=== PATIENT | female | born 1980 | race Caucasian/White ===

== ENCOUNTER 2017-09-26 18:28 | Emergency (ER) | payer BC, OTHER ==
[2017-09-26] MEDS ORDERED: Acetaminophen TAB* 325 MG PO ONE (19:25)
[2017-09-26] MEDS ORDERED: Oseltamivir CAP* 75 MG PO ONE (19:25)
--- NOTE | 2017-09-26 19:44 | ED ---
Jeremy Alcantar Tiffany, scribed for Eliud Prince on 09/26/17 at 1927 . Influenza-Like Illness - HPI Summary HPI Summary: This patient is a 37 year old F presenting to [facility] accompanied by with a chief complaint of general body aches since this morning. The patient rates the pain 6/10 in severity. Symptoms aggravated by nothing. Symptoms alleviated by nothing. Patient reports fever, chest pain, shortness of breath, and headache. - History of Current Complaint Chief Complaint: EDGeneral Time Seen by Provider: 09/26/17 19:14 Hx Obtained From: Patient Onset/Duration: Lasting Hours - This morning, Still Present Severity: Moderate - 6/10 - Allergy/Home Medications Allergies/Adverse Reactions: Allergies Allergy/AdvReac Type Severity Reaction Status Date / Time Sulfa Antibiotics Allergy Rash Verified 09/26/17 18:39 PMH/Surg Hx/FS Hx/Imm Hx Previously Healthy: Yes Cardiovascular History: Denies: Hx Pacemaker/ICD History: Denies: Hx Renal Disease Opthamlomology History: Denies: Hx Legally Blind EENT History: Denies: Hx Deafness Infectious Disease History: No Infectious Disease History: Denies: Traveled Outside the [place] in Last 30 Days - Family History Known Family History: Positive: Other - Pt denies relevant family history - Social History Alcohol Use: None Hx Substance Use: No Substance Use Type: Reports: None Hx Tobacco Use: No Review of Systems Positive: Fever Positive: Chest Pain Positive: Shortness Of Breath Positive: Other - General body aches Positive: Headache All Other Systems Reviewed And Are Negative: Yes Physical Exam - Summary Physical Exam Summary: Appearance: Well appearing, no pain distress Skin: warm, dry, reflects adequate perfusion Head/face: normal Eyes: EOMI, LARY ENT: normal Neck: supple, non-tender Respiratory: CTA, breath sounds present Cardiovascular: RRR, pulses symmetrical Abdomen: non-tender, soft Bowel: present Musculoskeletal: normal, strength/ROM intact Neuro: normal, sensory motor intact, A&Ox3 Triage Information Reviewed: Yes Vital Signs On Initial Exam: Initial Vitals Temp Pulse Resp BP Pulse Ox 96.9 F 100 20 121/75 97 09/26/17 18:36 09/26/17 18:36 09/26/17 18:36 09/26/17 18:36 09/26/17 18:36 Vital Signs Reviewed: Yes Diagnostics - Vital Signs Vital Signs Temp Pulse Resp BP Pulse Ox 09/26/17 18:36 96.9 F 100 20 121/75 97 - Laboratory Lab Results: Lab Results 09/26/17 Range/Units 18:54 Influenza A (Rapid) Positive H (Negative) Influenza B (Rapid) Negative (Negative) Lab Statement: Any lab studies that have been ordered have been reviewed, and results considered in the medical decision making process. Flu Symptom Course/Dx - Course Course Of Treatment: This patient is a 37 year old F presenting to [facility] with a chief complaint of general body aches since this morning. Influenza test came back positive. In ED course, the patient was given Tylenol and Tamiflu. Patient will be discharged with prescription for Tamiflu and follow up from PCP. The patient is agreeable with this plan. - Diagnoses Provider Diagnoses: Influenza Discharge - Discharge Plan Condition: Stable Disposition: HOME Prescriptions: Oseltamivir CAP* [Tamiflu CAP*] 75 mg PO BID #10 cap Patient Education Materials: Influenza (ED) Referrals: Sallie Harrison DO [Primary Care Provider] - 3 Days Additional Instructions: Follow up with primary care provider in 3 days. Return to the Emergency Room if current symptoms worsen or if new symptoms develop. The documentation as recorded by the Jeremy grover Tiffany accurately reflects the service I personally performed and the decisions made by Suresh neri Emmanuel.
[2017-09-26 20:20] VITALS: BP 115/60
== END 2017-09-26 20:18 | disposition home or self-care (01) ==
LOC: ED 18:28
DX: J11.1 Influenza due to unidentified influenza virus with other respiratory manifestations (principal)
CPT/HCPCS: 87502; 99282; A9270-GY

== ENCOUNTER 2019-11-30 10:20 | Emergency (ER) | payer BC ==
--- NOTE | 2019-11-30 11:08 | ED ---
HPI Cardiac - HPI Summary HPI Summary: 39 year old F [facility] complains of heart palpitations each lasting seconds since earlier this morning 11/30/2019. PMHx of anxiety and panic attacks as well as milder heart palpitations that normally stem from caffeine or exercise. She states her palpitations today lasted longer than previous experiences hence the ED visit. Patient reports cough, dizziness, SOB, and chest tightness which she believes could be attributed to the palpitations or anxiety. Patient denies v/d and any pain or swelling in the legs. No PMHx of blood clots but she states she had a nine hour car ride last week. No SocHx of drinking or smoking. SHx of a . Allergy to sulfa drugs noted. The patient rates the pain 0/10 in severity. Symptoms aggravated by nothing. Symptoms alleviated by nothing. Medications reviewed. Allergies noted. Home Medications Medication Instructions Recorded Confirmed Type Oseltamivir CAP* [Tamiflu CAP*] 75 mg PO BID #10 cap 09/26/17 Rx - History of Current Complaint Chief Complaint: EDDysrhythmPalp Stated Complaint: PALPITATIONS PER PT Time Seen by Provider: 11/30/19 10:45 Hx Obtained From: Patient Onset/Duration: Started Hours Ago, Still Present Timing: Intermittent, Lasting Seconds Current Severity: None Pain Intensity: 0 Pain Scale Used: 0-10 Numeric Character: Tightness - not pain Aggravating Factor(s): Nothing Alleviating Factor(s): Nothing Associated Signs and Symptoms: Positive: Dizziness, Shortness of Breath, Palpitations, Cough, Other: - Positive - chest tightness. Negative: Calf Pain/ Swelling - Allergy/Home Medications Allergies/Adverse Reactions: Allergies Allergy/AdvReac Type Severity Reaction Status Date / Time MS Sulfa Antibiotics Allergy Rash Verified 11/30/19 10:29 [Sulfa Antibiotics] Home Medications: Home Medications Oseltamivir CAP* [Tamiflu CAP*] 75 mg PO BID #10 cap 09/26/17 [Rx] PMH/Surg Hx/FS Hx/Imm Hx Cardiovascular History: Denies: Hx Pacemaker/ICD History: Denies: Hx Renal Disease Sensory History: Denies: Hx Legally Blind, Hx Deafness Opthamlomology History: Denies: Hx Legally Blind Psychiatric History: Reports: Hx Anxiety, Hx Panic Disorder - panic attacks - Immunization History Date of Tetanus Vaccine: Spring 2015 Date of Influenza Vaccine: Never Infectious Disease History: No Infectious Disease History: Denies: Traveled Outside the [place] in Last 30 Days - Family History Known Family History: Positive: Other - Pt denies relevant family history - Social History Alcohol Use: None Hx Substance Use: No Substance Use Type: Reports: None Hx Tobacco Use: No Smoking Status (MU): Former Smoker Review of Systems Positive: Palpitations, Other - Chest tightness Positive: Shortness Of Breath, Cough Negative: Vomiting, Diarrhea Negative: Edema - or pain in legs Neurological/Mental Status: Other - Dizziness All Other Systems Reviewed And Are Negative: Yes Physical Exam - Summary Physical Exam Summary: Constitutional: Well-developed, Well-nourished, Alert. Anxious Skin: Warm, Dry HENT: Normocephalic; Atraumatic Eyes: Conjunctiva normal Neck: Musculoskeletal ROM normal neck. (-) JVD, (-) Stridor, (-) Tracheal deviation Cardio: Rhythm regular, rate normal, Heart sounds normal; Intact distal pulses; Radial pulses are 2+ and symmetric. (-) Murmur Pulmonary/Chest wall: Effort normal. (-) Respiratory distress, (-) Wheezes, (-) Rales Abd: Soft, (-) tenderness, (-) Distension, (-) Guarding, (-) Rebound Musculoskeletal: (-) Edema Lymph: (-) Cervical adenopathy Neuro: Alert, Oriented x3 Psych: Mood and affect Normal Triage Information Reviewed: Yes Vital Signs On Initial Exam: Initial Vitals Temp Pulse Resp BP Pulse Ox 97.9 F 88 18 139/82 100 11/30/19 10:25 11/30/19 10:25 11/30/19 10:25 11/30/19 10:25 11/30/19 10:25 Vital Signs Reviewed: Yes Procedures - Sedation Patient Received Moderate/Deep Sedation with Procedure: No Diagnostics - Vital Signs Vital Signs Temp Pulse Resp BP Pulse Ox 11/30/19 10:25 97.9 F 88 18 139/82 100 - Laboratory Result Diagrams: 11/30/19 11:05 11/30/19 11:05 Lab Statement: Any lab studies that have been ordered have been reviewed, and results considered in the medical decision making process. - Radiology CXR Radiology Interpretation Completed By: Radiologist Summary of Radiographic Findings: IMPRESSION: NO EVIDENCE FOR ACTIVE CARDIOPULMONARY DISEASE. has reviewed this report. - EKG 1031 Cardiac Rate: NL EKG Rhythm: Sinus Rhythm Summary of EKG Findings: EKG at 1031 reveals SR at a rate of 84 bpm with Q waves in lead III. has reviewed and interpreted this EKG. Disposition - Course Course Of Treatment: Patient is here with a couple episodes of palpitations that occurred this morning. Patient is obviously anxious upon arrival but has no other symptoms. Patient's EKG shows no evidence of arrhythmia. Patient was monitored on telemetry with no episodes of palpitations. Patient had blood work performed which is grossly unremarkable. Patient was referred to primary care for Holter monitor. - Diagnoses Provider Diagnoses: Palpitations Discharge ED - Sign-Out/Discharge Documenting (check all that apply): Patient Departure - discharge - Discharge Plan Condition: Stable Disposition: HOME Patient Education Materials: Heart Palpitations (DC) Referrals: [facility]YSICIAN REFERRAL [Outside] Additional Instructions: Please follow up with your primary care referral for possible Holter monitor Please return if you have chest pain, shortness of breath, severe palpitations, any other concerning symptoms - Billing Disposition and Condition Condition: STABLE Disposition: Home - Attestation Statements Document Initiated by Laloibe: Yes Documenting Scribe: Cristino Cartwright Provider For Whom Mikie is Documenting (Include Credential): Fahad Martino MD Scribe Attestation: Cristino Alcantar, scribed for Fahad Martino MD on 11/30/19 at 1837. Scribe Documentation Reviewed: Yes Provider Attestation: The documentation as recorded by the Cristino grover accurately reflects the service I personally performed and the decisions made by me, Fahad Martino MD Status of Scribe Document: Viewed
[2019-11-30 11:23] LABS: ABS Eosinophils 0.1 10^3/ul (0-0.6); ABS Lymphocytes 1.1 10^3/ul (1.0-4.8); ABS Monocytes 0.3 10^3/ul (0-0.8); ABS Neutrophils 3.6 10^3/ul (1.5-7.7); Eosinophil % 2.1 %; Hematocrit 33 % (35-47); Hemoglobin 10.8 g/dL (12.0-16.0); Lymphocyte % 21.6 %; Mean Corpuscular HGB Conc 33 g/dL (31-36); Mean Corpuscular Hemoglobin 25 pg (27-31); Mean Corpuscular Volume 76 fL (80-97); Mean Platelet Volume 7.6 fL (7.4-10.4); Platelet Count 419 10^3/uL (150-450); Red Blood Count 4.36 10^6 /uL (3.70-4.87); Red Cell Distribution Width 16 % (10-15); White Blood Count 5.2 10^3/uL (3.5-10.8)
[2019-11-30 11:49] LABS: ALT 12 U/L (7-52); AST 12 U/L (13-39); Albumin 4.8 g/dL (3.2-5.2); Albumin/Globulin Ratio 1.6 (1-3); Alkaline Phosphatase 60 U/L (34-104); Anion Gap 7 mmol/L (2-11); BUN/Creatinine Ratio 15.6 (8-20); Blood Urea Nitrogen 12 mg/dL (6-24); CO2 Carbon Dioxide 25 mmol/L (22-32); Calcium 9.6 mg/dL (8.6-10.3); Chloride 105 mmol/L (101-111); EGFR Non-African American 83.5 (>60); Glucose 99 mg/dL (70-100); Magnesium 2.3 mg/dL (1.9-2.7); Sodium 137 mmol/L (135-145); Total Protein 7.8 g/dL (6.4-8.9)
[2019-11-30 11:55] LABS: HCG Pregnancy < 0.60 mIU/mL
[2019-11-30 12:19] LABS: TSH (Thyroid Stimulating Horm) 1.63 mcIU/mL (0.34-5.60)
[2019-11-30 12:35] VITALS: BP 111/78
== END 2019-11-30 12:36 | disposition home or self-care (01) ==
LOC: ED 10:20
DX: R00.2 Palpitations (principal); R06.02 Shortness of breath; R05 Cough; R42 Dizziness and giddiness; R07.89 Other chest pain; F41.0 Panic disorder [episodic paroxysmal anxiety]; Z88.2 Allergy status to sulfonamides; Z87.891 Personal history of nicotine dependence
CPT/HCPCS: 36415; 71046; 80053; 83735; 84443; 84484; 84702; 85025; 85379; 93005; 99282

== ENCOUNTER 2020-01-10 09:54 | Emergency (ER) | payer BC ==
[2020-01-10 11:23] VITALS: BP 124/73
--- NOTE | 2020-01-10 12:01 | UC ---
Complaint Female HPI - HPI Summary HPI Summary: 4 DAYS OF URINARY FREQUENCY AND URGENCY WITH SUPER PUBIC PRESSURE. NO NAUSEA. NO BACK PAIN. NO FEVER. - History Of Current Complaint Chief Complaint: UCGU Stated Complaint: URINARY ISSUE Time Seen by Provider: 01/10/20 11:06 Hx Obtained From: Patient Hx Last Menstrual Period: 12/26/19 Onset/Duration: Gradual Onset, Lasting Days, Still Present Timing: Constant Severity Initially: Moderate Severity Currently: Moderate Pain Intensity: 0 Pain Scale Used: 0-10 Numeric Character: Burning Aggravating Factor(s): Urination Alleviating Factor(s): Nothing Associated Signs And Symptoms: Negative: Fever, Back Pain, Nausea - Allergies/Home Medications Allergies/Adverse Reactions: Allergies Allergy/AdvReac Type Severity Reaction Status Date / Time Sulfa (Sulfonamide Allergy Rash Verified 01/10/20 11:16 Antibiotics) Home Medications: Home Medications Ciprofloxacin TAB* [Cipro 500 MG TAB*] 500 mg PO BID #10 tab 01/10/20 [Rx] Omeprazole 20 mg PO DAILY 01/10/20 [History Confirmed 01/10/20] lamoTRIgine TAB(*) [Lamictal TAB(*)] 25 mg PO BEDTIME 01/10/20 [History Confirmed 01/10/20] PMH/Surg Hx/FS Hx/Imm Hx Psychological History: Bipolar Disorder - Surgical History Surgical History: Yes Surgery Procedure, Year, and Place: c-sections - Family History Known Family History: Positive: Other - Pt denies relevant family history - Social History Alcohol Use: None Substance Use Type: None Smoking Status (MU): Former Smoker Review of Systems All Other Systems Reviewed And Are Negative: Yes Constitutional: Positive: Negative Respiratory: Positive: Negative Cardiovascular: Positive: Negative Gastrointestinal: Positive: Negative Genitourinary: Positive: Dysuria, Frequency, Urgency Physical Exam Triage Information Reviewed: Yes Appearance: Well-Appearing, No Pain Distress, Well-Nourished Vital Signs: Initial Vital Signs Temp 98 F 01/10/20 11:13 Pulse 84 01/10/20 11:13 Resp 16 01/10/20 11:13 BP 124/73 01/10/20 11:13 Pulse Ox 99 01/10/20 11:13 Laboratory Tests 01/10/20 11:30 POC Urine Color Yellow POC Urine Clarity Slightly cloudy POC Urine pH 6.0 POC Ur Specif Kinney 1.025 POC Urine Protein Negative POC Ur Glucose (UA) Negative POC Urine Ketones Negative POC Urine Blood 2+ A POC Urine Nitrite Negative POC Urine Bilirubin Negative POC Urine Urobilinogen 0.2 POC U Leukocyte Esteras 1+ A Vital Signs Reviewed: Yes Eyes: Positive: Conjunctiva Clear ENT: Positive: Hearing grossly normal Neck: Positive: Supple Respiratory: Positive: No respiratory distress, No accessory muscle use Cardiovascular: Positive: Pulses Normal Abdomen Description: Positive: Nontender, Soft. Negative: CVA Tenderness (R), CVA Tenderness (L), Distended, Guarding Musculoskeletal: Positive: No Edema Neurological: Positive: Alert Psychological: Positive: Age Appropriate Behavior Skin: Negative: Rashes Complaint Female Dx - Course Course Of Treatment: URINE DIP SUGGESTIVE OF UTI. CIPRO TWICE DAILY FOR 5 DAYS. BLACK BOX WARNINGS DISCUSSED. PATIENT IS COMFORTABLE TAKING THIS MEDICATION. ADVISED TO STAY WELL -HYDRATED. SPECIMEN SENT FOR CULTURE. WE WILL CALL THE PATIENT IF MEDICATION NEEDS TO BE CHANGED. - Differential Dx/Diagnosis Provider Diagnosis: UTI (urinary tract infection) Discharge ED - Sign-Out/Discharge Documenting (check all that apply): Patient Departure All imaging exams completed and their final reports reviewed: No Studies - Discharge Plan Condition: Stable Disposition: HOME Prescriptions: Ciprofloxacin TAB* [Cipro 500 MG TAB*] 500 mg PO BID #10 tab Patient Education Materials: Urinary Tract Infection in Women (ED) Referrals: Sallie Harrison DO [Primary Care Provider] - If Needed Additional Instructions: TAKE THE ANTIBIOTICS FOR THE FULL COURSE. STAY WELL HYDRATED. URINE SPECIMEN HAS BEEN SENT FOR CULTURE. WE WILL CALL YOU IF YOUR MEDICATION NEEDS TO BE CHANGED. - Billing Disposition and Condition Condition: STABLE Disposition: Home
== END 2020-01-10 11:58 | disposition home or self-care (01) ==
LOC: UCEAST 09:54
DX: N39.0 Urinary tract infection, site not specified (principal); F31.9 Bipolar disorder, unspecified; Z79.899 Other long term (current) drug therapy; Z88.2 Allergy status to sulfonamides; Z87.891 Personal history of nicotine dependence
CPT/HCPCS: 81003; 87077; 87086; 87186; 99212; G0463